=== PATIENT | male | born 2000 | race African-American/Black ===

== ENCOUNTER 2020-01-07 13:23 | Emergency (ER) | payer OTHER ==
[~2020-01-07] VITALS: Ht 172.7 cm; Wt 68.2 kg
[2020-01-07 13:30] VITALS: BP 123/86
== END 2020-01-07 16:09 | disposition home or self-care (01) ==
LOC: EMS 14:22
DX: R19.7 Diarrhea, unspecified (principal); R11.2 Nausea with vomiting, unspecified; R10.32 Left lower quadrant pain; F17.210 Nicotine dependence, cigarettes, uncomplicated; Z20.828 Contact with and (suspected) exposure to other viral communicable diseases
CPT/HCPCS: 99283; U0003